=== PATIENT | male | born 1985 | race Caucasian/White ===

== ENCOUNTER 2020-01-12 10:12 | Outpatient (CLI) | payer OTHER, SELFPAY ==
--- NOTE | ~2020-01-12 | XR_ITS ---
XR sinus min 3V 01/12/2020 10:52 Indication: Sinusitis Procedure: 5 views cervical spine Comparison: No prior studies for comparison. Findings: Paranasal sinuses are pneumatized without significant opacification. No air-fluid levels. M astoids are pneumatized. No significant nasal septal deviation. Impression: 1: No significant abnormality of the paranasal sinuses. Reviewed, dictated and finalized at location A. 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
--- NOTE | ~2020-01-12 | XR_ITS ---
EXAMINATION: XR chest 2V EXAM DATE: 01/12/2020 10:52 INDICATION: Chronic sinus disease. Shortness of breath. TECHNIQUE: Frontal and lateral projections of the chest obtained and reviewed. There is no prior maninder dy for comparison. FINDINGS: The lungs are clear. There are no pleural effusions. The cardiomediastinal silhouette is within normal limits. There is no pneumothorax suspected. The bones and soft tissues are unremarkab le. IMPRESSION: No acute cardiopulmonary findings. Reviewed, dictated and finalized at location B. 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
[2020-01-12 10:35] LABS: Add Urine Microscopic? NO; Appearance Urine Clear (Clear); Basophils Absolute Auto 0.06 K/mm3 (0.00-0.10); Basophils Percent Auto 0.8 % (0.0-1.0); Bilirubin Urine Negative (Negative); Blood Urine Negative (Negative); Color Urine Yellow (Yellow); Eosinophils Absolute Auto 0.12 K/mm3 (0.02-0.50); Eosinophils Percent Auto 1.6 % (1.0-6.0); Glucose Urine UA Negative (Negative); Hemoglobin 15.9 g/dL (14.0-18.0); Immature Granulocyte Absolute 0.04 K/mm3 (0.00-0.00); Immature Granulocyte Percent A 0.5 % (0.0-0.0); Ketones Urine Negative (Negative); Leukocyte Esterase Ur Negative LEU/UL (Negative); Lymphocytes Absolute Auto 2.98 K/mm3 (1.10-4.50); Lymphocytes Percent Auto 40.3 % (18.0-42.0); Mean Corpuscular HGB Conc 34.6 g/dL (32.0-36.0); Mean Corpuscular Hemoglobin 31.8 pg (27.0-31.0); Mean Platelet Volume 9.2 fl (8.7-11.0); Monocytes Percent Auto 8.1 % (2.0-11.0); Neutrophils Absolute Auto 3.6 K/mm3 (1.7-7.2); Neutrophils Percent Auto 48.7 % (50.0-70.0); Nitrate Urine Negative (Negative); Platelet Count Result 224 K/mm3 (150-420); Protein Urine Negative (Negative); Red Cell Distribution Width 12.2 % (11.6-14.4); Specific Grav Ur 1.025 (1.010-1.020); Urobilinogen Urine 0.2 mg/dL (0.2-1.0); White Blood Count 7.4 K/mm3 (4.8-10.8); pH Urine 5.5 (5.0-8.0)
[2020-01-12 11:05] LABS: BNP < 5.0 pg/mL (0-100)
[2020-01-12 11:45] LABS: Alanine Aminotransferase 99 U/L (16-63); Albumin Level 4.6 g/dL (3.4-5.0); Alkaline Phosphatase 42 U/L (46-116); Anion Gap 10 mmol/L (8-16); Aspartate Amino Transferase 42 U/L (15-37); Bilirubin,Total 0.9 mg/dL (0.00-1.00); Blood Urea Nitrogen 20 mg/dL (7-18); Calcium 9.4 mg/dL (8.5-10.1); Carbon Dioxide 28 mmol/L (21-32); Chloride 104 mmol/L (98-108); Estimated Glomerular Filt Rate > 60; Glucose 93 mg/dL (70-99); Osmolality Calculated 296 mOsm/kg (285-295); Potassium 4.6 mmol/L (3.5-5.1); Sodium 142 mmol/L (136-145); Thyroid Stimulating Hormone 3.58 uIU/mL (0.36-3.74); Total Protein 7.8 g/dL (6.4-8.2)
[2020-01-14 10:00] LABS: GGT 68 U/L (15-85)
[2020-01-18 03:30] LABS: Hepatitis A Antibody IgM Nonreactive; Hepatitis B Core Antibody Nonreactive (Nonreactive); Hepatitis B Surface Antigen Nonreactive (Nonreactive); Hepatitis C Signal to Cutoff 0.01 ratio (<1.00); Hepatitis C Virus Antibody Nonreactive (Nonreactive)
== END 2020-01-12 10:13 | disposition home or self-care (01) ==
LOC: CHSLAB 10:14
PROVIDERS: PCP Internal Medicine; Visit Provider Internal Medicine
DX: R60.9 Edema, unspecified (principal); J32.9 Chronic sinusitis, unspecified; R94.5 Abnormal results of liver function studies
CPT/HCPCS: 36415; 70220; 71046; 80053; 80074; 81003; 82977; 83880; 84443; 85025

== ENCOUNTER → 2022-06-15 08:26 | Outpatient (CLI) | payer OTHER, SELFPAY ==
--- NOTE | ~2022-06-15 | XR_ITS ---
Lumbosacral Spine: AP and lateral views Clinical History: Pain Findings: The normal lordotic curve is maintained. No fracture or subluxation seen. There is mild to moderate degenerative disc narrowing at L4-L5 and L5-S1. The sacroiliac joints are normally outlined. Impression: [id number] degenerative disc narrowing at L4-L5 and L5-S1. Reviewed, dictated and finalized at [facility]. Impression: [id number] degenerative disc narrowing at L4-L5 and L5-S1.
== END ==
PROVIDERS: PCP Internal Medicine; Visit Provider Nurse Practitioner Family
DX: M54.50 Low back pain, unspecified (principal)
CPT/HCPCS: 72100

== ENCOUNTER 2022-06-18 09:56 | Emergency (ER) | payer OTHER, SELFPAY ==
--- NOTE | ~2022-06-18 | CT_ITS ---
EXAMINATION: CT abdomen pelvis w con DATE: 06/18/2022 11:49 INDICATION: Epigastric abdominal pain. Nausea. TECHNIQUE: Computed tomography (CT) of the abdomen and pelvis was performed with 100 mL Omnipaque 350 intravenous contrast. Automated exposure control and iterative reconstruction technique were employe d. The dose-length product was 1343.93 mGy-cm. COMPARISON: None. FINDINGS: The visualized portions of the lung bases are clear without pneumonia or pleural effusion. The heart size is normal. No pericardial effusion. There is a 4 mm cyst in the liver. The gallbladder , spleen, pancreas, adrenal glands, and kidneys are normal. There are no dilated loops of bowel. The appendix is normal. There are no pathologically enlarged lymph nodes. There is no free intraperitonea l fluid. There is mild thoracolumbar spondylosis. IMPRESSION: 1. No etiology for the patient's symptoms. Reviewed, dictated and finalized at location A.
--- NOTE | 2022-06-18 09:58 | ED.ABDPAIN ---
HPI - Abdominal Pain General Chief Complaint: Abdominal Pain Stated Complaint: abdominal pain Time Seen by Provider: 06/18/22 09:58 Source: patient and RN notes reviewed Mode of arrival: ambulatory Limitations: no limitations History of Present Illness HPI narrative: patient states that he has been having some problems with back pain. He was started on some steroids yesterday after he was given an injection in the office. He has only been on the steroids for a day. Started having some epigastric pain at 5:00 a.m. this morning. He thought it was just indigestion then it seemed to get worse. Comes in waves. Sometimes he feels dizzy. He denies any shortness of breath, nausea vomiting diarrhea, fever chills. MD elicited complaint: abdominal pain Pertinent past history: none Onset (ago): hour(s) (5) Pain Consistency: intermittent Location: epigastric Severity: moderate Quality: aching and burning Radiation: LUQ Migration to: no migration Exacerbating factors: nothing Relieving factors: nothing Associated symptoms: nausea Related Data Home Medications Medication Instructions Recorded Confirmed methylprednisolone 4 mg tablets in See Rx Instructions .Route .COMPLEX 06/18/22 06/18/22 a dose pack (Medrol (Tramaine)) Allergies Allergy/AdvReac Type Severity Reaction Status Date / Time No Known Allergies Allergy Verified 12/28/18 19:14 Review of Systems Review of Systems: All systems reviewed & are unremarkable except as noted in HPI and below Constitutional: Constitutional: Denies chills and Denies fever(s) Gastrointestinal: Gastrointestinal: Denies constipation, Denies diarrhea and Denies vomiting PMFSH Past Medical History Medical History (Updated 06/18/22 @ 12:24 by Norman Prakash MD) Sciatica Surgical History Surgical History No history of previous surgery Social History Social History Gender identity (if verbalized by the patient): Male Exam Const: General: healthy appearing, no acute distress and alert Nutritional Appearance: well nourished Orientation/consciousness: patient oriented x3 Limitations: no limitations HENMT: Head: normal to inspection Ears: external ears normal Face/Nose/Sinus: Normal external nose present Face and sinus: normal facial exam Mouth: Yes moist mucous membranes Eyes: Conjunctivae: conjunctivae normal Pupils: Equal, round and reactive pupils present EOM: EOMs intact bilaterally Neck: Neck: normal visual inspection Resp: Effort & Inspection: normal respiratory effort Auscultation: clear to auscultation bilaterally Cardio: Rate: regular rate Rhythm: regular rhythm GI: GI Palp: Yes Soft to palpation, Yes Tenderness to palpation present (GI) ( moderate epigastric), No Guarding due to palpation present (GI) and No Rebound tenderness present Auscultation: normal bowel sounds Back/Spine/Pelvis: Back: no CVA tenderness Cervical Spine: cervical ROM normal Thoracic/Lumbar Spine: thoraco-lumbar ROM normal Skin: General skin exam: normal color Wounds: no wounds Neuro: General: patient oriented x3, moves all extremities, no focal motor deficits and CN's II-XI intact bilaterally Speech: normal speech Gait exam (Neuro): Normal gait present Extrem: General: normal to inspection and no clubbing, cyanosis or edema Psych: Mental Status: mental status grossly normal Affect: normal affect Attitude: cooperative Course Vital Signs Vital signs: Vital Signs Temperature 36.4 C L 06/18/22 10:03 Pulse Rate 70 06/18/22 10:03 Respiratory Rate 17 06/18/22 10:03 Blood Pressure 116/63 06/18/22 10:03 Pulse Oximetry 100 06/18/22 10:03 Oxygen Delivery Room Air 06/18/22 10:03 Temperature 37.2 C 06/18/22 12:42 Pulse Rate 75 06/18/22 12:42 Respiratory Rate 18 06/18/22 12:42 Blood Pressure 132/57 L 06/18/22 12:42 Pulse Oximetry
[2022-06-18 10:03] VITALS: BP 116/63; PULSE 70; RESP 17; TEMP 36.4; O2SAT 100
--- NOTE | 2022-06-18 10:31 | PC.NURSE ---
RN attempted IV start x 2 without success. During IV start, pt reported feeling lightheaded. cool cloth provided. WILLIE Strickland to attempt. family at bedside.
--- NOTE | 2022-06-18 10:44 | PC.NURSE ---
WILLIE Strickland successful IV start after 2 attempts however unable to obtain blood for testing. 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
[2022-06-18] MEDS: PANTOPRAZOLE SODIUM IV 40 MG VIAL IV PUSH (10:55)
[2022-06-18 10:56] LABS: Basophils Absolute Auto 0.08 K/mm3 (0.00-0.10); Basophils Percent Auto 0.5 % (0.0-1.0); Eosinophils Absolute Auto 0.11 K/mm3 (0.02-0.50); Eosinophils Percent Auto 0.6 % (1.0-6.0); Hematocrit 48.8 % (40.0-54.0); Hemoglobin 16.6 g/dL (14.0-18.0); Immature Granulocyte Absolute 0.11 K/mm3 (0.00-0.00); Immature Granulocyte Percent A 0.6 % (0.0-0.0); Lymphocytes Absolute Auto 1.18 K/mm3 (1.10-4.50); Lymphocytes Percent Auto 6.8 % (18.0-42.0); Mean Corpuscular Hemoglobin 30.9 pg (27.0-31.0); Mean Corpuscular Volume 90.7 fL (78.0-102.0); Mean Platelet Volume 9.3 fl (8.7-11.0); Monocytes Absolute Auto 1.08 K/mm3 (0.10-0.90); Monocytes Percent Auto 6.3 % (2.0-11.0); Neutrophils Absolute Auto 14.7 K/mm3 (1.7-7.2); Neutrophils Percent Auto 85.2 % (50.0-70.0); Platelet Count Result 251 K/mm3 (150-420); Red Blood Count 5.38 M/mm3 (4.70-6.10); Red Cell Distribution Width 11.9 % (11.6-14.4); White Blood Count 17.3 K/mm3 (4.8-10.8)
[2022-06-18 11:28] LABS: Alanine Aminotransferase 24 U/L (16-63); Alkaline Phosphatase 58 U/L (46-116); Anion Gap 11 mmol/L (8-16); Aspartate Amino Transferase 10 U/L (15-37); Bilirubin,Total 1.4 mg/dL (0.00-1.00); Blood Urea Nitrogen 27 mg/dL (7-18); Calcium 8.7 mg/dL (8.5-10.1); Carbon Dioxide 26 mmol/L (21-32); Chloride 102 mmol/L (98-108); Estimated CRCL calculation 91 ml/min; Estimated Glomerular Filt Rate > 60; Glucose 127 mg/dL (70-99); Lipase 31 U/L (16-77); Magnesium 1.8 mg/dL (1.8-2.4); Osmolality Calculated 295 mOsm/kg (285-295); Potassium 4.2 mmol/L (3.5-5.1); Sodium 139 mmol/L (136-145); Total Protein 7.2 g/dL (6.4-8.2)
--- NOTE | 2022-06-18 11:33 | PC.NURSE ---
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
[2022-06-18 11:41] LABS: Lactic Acid Reflex 3.4 mmol/L (0.4-2.0)
[2022-06-18 11:55] VITALS: BP 98/45; PULSE 66; RESP 17; TEMP 36.4; O2SAT 99
[2022-06-18 12:32] VITALS: BP 132/57; PULSE 75; RESP 18; TEMP 37.2; O2SAT 100
[2022-06-18 12:42] VITALS: BP 132/57; PULSE 75; RESP 18; TEMP 37.2; O2SAT 100
[2022-06-18 13:27] LABS: Reflex Lactic Acid Yes or No No Lactic Reflex
== END 2022-06-18 12:42 | disposition home or self-care (01) ==
PROVIDERS: Emergency Provider Emergency Medicine; PCP Internal Medicine
DX: R10.13 Epigastric pain (principal)
CPT/HCPCS: 36415; 74177; 80053; 83605; 83690; 83735; 85025; 96374; 99284; C9113; Q9967

== ENCOUNTER 2024-07-30 17:28 | Emergency (ER) | payer OTHER, SELFPAY ==
--- NOTE | ~2024-07-30 | XR_ITS ---
XR knee LT 3V Ordering provider: Magno Locke MD History: . slipped and twisted Lt. knee, pain/ limited ROM . Comparison: None. FINDINGS: BONES: No acute fracture or dislocation. JOINT SPACES: Normal. SOFT TISSUES: Soft tissue swelling is seen in the area of the patellar tendon. Tendinosis versus a te ar cannot be excluded. Further evaluation advised. IMPRESSION: No acute osseous abnormality left knee. Soft tissue swelling in the area of the patellar tendon. Further evaluation advised. Reviewed, dictated and finalized at location A. IMPRESSION: No acute osseous abnormality left knee. Soft tissue swelling in the area of the patellar tendon. Further evaluation adv ised.
[2024-07-30 17:28] VITALS: BP 167/87; PULSE 72; RESP 16; TEMP 36.9; O2SAT 96
--- NOTE | 2024-07-30 17:36 | ED_ITS ---
HPI - Extremity Injury (Lower) General Chief Complaint: Extremity Injury, Lower Stated Complaint: left knee pain Time Seen by Provider: 07/30/24 17:35 Source: patient Mode of arrival: wheelchair Limitations: no limitations History of Present Illness HPI Narrative: 39-year-old male slipped while walking and twisted his left knee which caused --severe pain just prior to coming to the ED. -- abrasion the right forearm other injuries noted. No head injury. No neck back pain. complaint: knee injury Onset (ago): hour(s) ( 1 hour ago) Injury: Left: knee Type of Injury: hyperextension Place: home Severity: severe Exacerbating factors: movement Context: walking Other symptoms: none Treatments prior to arrival: cold therapy Related Data Home Medications ?Medication ?Instructions ?Recorded ?Confirmed ?Last Taken ?Type methylprednisolone 4 mg tablets in See Rx Instructions .Route .COMPLEX 06/18/22 06/18/22 Unknown History a dose pack (Medrol (Tramaine)) Allergies Allergy/AdvReac Type Severity Reaction Status Date / Time No Known Allergies Allergy Verified 07/30/24 17:33 Review of Systems Review of Systems: All systems reviewed & are unremarkable except as noted in HPI and below PMFSH Past Medical History Medical History Sciatica Surgical History Surgical History No history of previous surgery Social History Social History Gender identity (if verbalized by the patient): Male Exam Narrative: blood pressure 167/87. Const: General: ill appearing Nutritional Appearance: well nourished Orientation/consciousness: patient oriented x3 Limitations: no limitations HENMT: Head: normal to inspection Ears: external ears normal Face/Nose/Sinus: Normal external nose present Face and sinus: normal facial exam Mouth: Yes Normal oral and palatal mucosa present Throat: posterior oropharynx normal Eyes: Conjunctivae: conjunctivae normal Pupils: Equal, round and reactive p upils present EOM: EOMs intact bilaterally Direct Ophthalmoscopy: no photophobia Neck: Neck: normal visual inspection, no lymphadenopathy and no meningeal signs Chest: Chest palpation & inspection: normal inspection of the chest Resp: Effort & Inspection: normal respiratory effort Auscultation: clear to auscultation bilaterally Cardio: Rate: regular rate Rhythm: regular rhythm GI: GI Palp: Yes Soft to palpation Auscultation: normal bowel sounds Other: No tenderness/rigidity / rebound. : General: Yes no CVA tenderness Back/Spine/Pelvis: Back: no CVA tenderness Skin: General skin exam: normal color Rashes: no rashes Wounds: no wounds Neuro: General: patient oriented x3, moves all extremities, no meningeal signs, no focal motor deficits and CN's II-XI intact bilaterally Cranial nerves: Yes Nystagmus not present Speech: normal speech Gait exam (Neuro): Normal gait present Extrem: General: normal to inspection and no clubbing, cyanosis or edema Other: Left knee-- tenderness over left medial joint. No joint swelling. Decreased range of motion. No sprain of medial or lateral collateral ligament. Psych: Mental Status: mental status grossly normal Affect: normal affect Attitude: cooperative Course Course Emergency Course: Left knee sprain-- x-ray did show any fracture/dislocation abrasion on the back of right forearm Vital Signs Vital signs: Vital Signs Temperature 36.9 C 07/30/24 17:28 Pulse Rate 72 07/30/24 17:28 Respiratory Rate 16 07/30/24 17:28 Blood Pressure 167/87 H 07/30/24 17:28 Pulse Oximetry 96 07/30/24 17:28 Oxygen Delivery Room Air 07/30/24 17:28 Temperature 36.9 C 07/30/24 17:28 Pulse Rate 72 07/30/24 17:28 Respiratory Rate 16 07/30/24 17:28 Blood Pressure 167/87 H 07/30/24 17:28 Pulse Oximetry 96 07/30/24 17:28 Oxygen Delivery Room Air 07/30/24 17:28 MDM - Extremity Injury (Lower) MDM Narrative Medical decision making narrative: left knee sprain forearm abrasion Differential Diagnosis Differential diagnosis: Likely acute internal derangement of knee Lab Data Attestation: I reviewed the patient's lab results. Discharge Plan Discharge Clinical Impression: Left knee sprain, Abrasion of forearm Patient Disposition: Home Condition: Stable Instructions: Antibiotic Form, Knee Sprain (ED) Additional Instructions: follow-up with primary care physician / ortho specialist Patient Language: Danish Prescriptions: New hydrocodone-acetaminophen 5-325 mg tablet 1 tablet PO Q8H PRN (Reason: pain) Qty: 10 0RF diclofenac sodium 75 mg tablet,delayed release (DR/EC) 75 mg PO BID PRN (Reason: pain) Qty: 20 0RF (DME) crutches See Rx Instructions .Route .MEDSUPPLY Qty: 1 0RF Rx Instructions: As directed No Action methylprednisolone [Medrol (Tramaine)] 4 mg tablets,dose pack See Rx Instructions .ROUTE .COMPLEX Rx Instructions: medrol dose tramaine lansoprazole [Prevacid] 30 mg capsule,delayed release(DR/EC) 30 mg PO DAILY Qty: 14 0RF metronidazole 500 mg tablet 500 mg PO Q8H 10 Days Qty: 30 0RF Follow-up/Referrals: Rodriguez Foley MD [Primary Care Provider] - Time of Disposition: 18:27
[2024-07-30] MEDS: TETANUS,DIPHTHERIA,AC PERTUSSIS ADULT 0.5 ML (ADACEL) IM (17:46)
[2024-07-30] MEDS: ONDANSETRON HCL ODT 4 MG TABLET PO (17:46)
[2024-07-30] MEDS: HYDROmorphone HCL INJ (*CRX) 2 MG/ML VIAL 0.5 MG IM (17:50)
[2024-07-30 18:31] VITALS: BP 145/71; PULSE 70; RESP 14; O2SAT 95
[2024-07-30 18:45] VITALS: BP 145/71; PULSE 70; RESP 14; TEMP 36.9; O2SAT 95
== END 2024-07-30 18:45 | disposition home or self-care (01) ==
PROVIDERS: Emergency Provider Internal Medicine Critical Care Medicine; PCP Internal Medicine
DX: S83.92XA Sprain of unspecified site of left knee, initial encounter (principal); S50.811A Abrasion of right forearm, initial encounter; W01.0XXA Fall on same level from slipping, tripping and stumbling without subsequent striking against object, initial encounter; Z23 Encounter for immunization
CPT/HCPCS: 73562; 90471; 90715; 96372; 99283; A9270; J1171; L1830

== ENCOUNTER 2024-10-07 09:56 | Outpatient (RCR) | payer OTHER, SELFPAY ==
--- NOTE | 2024-10-07 11:10 | OPREHPOC ---
Outpatient Therapy Plan of Care This is a Multidisciplinary Plan of Care that may contain components documented by all disciplines (PT, OT, and ST.) PT Problem 1 PT Problem #1 Knowledge Deficit PT Goal 1 Goal / Goal Update The patient will be independent in a home exercise program. Target Visit 2 PT Problem 2 PT Problem #2 Pain PT Goal 1 Goal / Goal Update The patient will report 0/10 left knee pain with return to full duty work. Target Visit 18 PT Problem 3 PT Problem #3 Impaired Functional Mobility PT Goal 1 Goal / Goal Update The patient will demonstrate 25% or less self perceived disability per the LEFS questionnaire. The patient will be able ascend/descend a flight of stairs reciprocally without left knee pain. The patient will demonstrate the ability to ambulate 1,200 feet during the 6 minute walk test to improve community ambulation. Target Visit 18 PT Problem 4 PT Problem #4 Impaired Range of Motion PT Goal 1 Goal / Goal Update The patient will demonstrate 0-120 degrees left knee AROM to normalize gait. Target Visit 12 PT Problem 5 PT Problem #5 Impaired Gait PT Goal 1 Goal / Goal Update The patient will demonstrate equilateral knee ROM and step length with gait. Target Visit 12
--- NOTE | 2024-10-07 11:10 | PTOPEVAL1 ---
Assessment and note entered by Simran Graf, PT Evaluation Information Assessment Status Evaluation Diagnosis s/p L knee open patellar tendon repair ICD-10 Condition Codes (PT) Encounter for other orthopedic aftercare Z47.89 Other ICD-10 Condition Codes ( S86.812A PT) Onset 08/12/24 Subjective Information John Kwan reports he tore his left patella tendon when he slipped while racing his children. When he slipped, he tried to pull his leg back and felt a pop in the front of the knee. The injury occurred on 07/30/24 and he had surgery to repair the tendon on 08/12/24. He was using crutches and wearing a knee brace for the first 4-5 weeks. He continued wearing the brace until about one week ago. He reports the brace kept his knee extended. He saw the doctor on 09/24/24 and was referred to PT . He reports his knee feels tight when he tries to bend it. He is still taking stairs one at a time. He has been walking with a little bit of a waddle and notes he can walk up to 60 minutes. Reported Pain Level Pain Score 0: Self Report Assessment PT Clinical Summary John Kwan presents 8 weeks s/p L knee open patellar tendon repair that was performed on . He is reporting difficulty with stairs, walking long distances, and bending his knee. 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 He objectively demonstrates decreased left knee flexion and extension AROM, decreased left knee strength, impaired gait, and impaired balance. He will benefit from skilled PT to address these limitations. Plan of Care Interventions Electrical Stimulation,Gait Training,Hot Pack/Cold Pack,Intermittent Compression Pump,Manual Therapy ,Neuro Re-education,Patient/Caregiver Education, Therapeutic Activities,Therapeutic Exercise PT Services Indicated Yes Treatment Frequency and 3 times a week for 6 visits then 2 times a week Duration for 12 visits for a total of 18 visits These treatments will address the objective and functional deficits as defined above. The patient will be advanced safely and appropriately in order for the patient to progress towards his/her prior level of function. Additional exercises will be introduced and as well as a comprehensive home exercise program upon discharge, if needed, ?to ensure carryover of functional gains achieved in the clinic. This treatment plan has been reviewed and agreement upon by the patient.
--- NOTE | 2024-10-13 08:13 | PCPTNOTE ---
Patient called & cancelled scheduled appointment this date due to not feeling well. -Simran Graf, PT
--- NOTE | 2024-10-25 09:04 | OPREHPOC ---
Outpatient Therapy Plan of Care This is a Multidisciplinary Plan of Care that may contain components documented by all disciplines (PT, OT, and ST.) PT Problem 1 PT Problem #1 Knowledge Deficit PT Goal 1 Goal / Goal Update The patient will be independent in a home exercise program. Target Visit 2 Progress Met PT Problem 2 PT Problem #2 Pain PT Goal 1 Goal / Goal Update The patient will report 0/10 left knee pain with return to full duty work. Target Visit 18 Progress Met PT Problem 3 PT Problem #3 Impaired Functional Mobility PT Goal 1 Goal / Goal Update The patient will demonstrate 25% or less self perceived disability per the LEFS questionnaire. - not met The patient will be able ascend/descend a flight of stairs reciprocally without left knee pain. - not met The patient will demonstrate the ability to ambulate 1,200 feet during the 6 minute walk test to improve community ambulation. -met Target Visit 18 Progress Partially Met PT Problem 4 PT Problem #4 Impaired Range of Motion PT Goal 1 Goal / Goal Update The patient will demonstrate 0-120 degrees left knee AROM to normalize gait. Target Visit 12 Progress Met PT Problem 5 PT Problem #5 Impaired Gait PT Goal 1 Goal / Goal Update The patient will demonstrate equilateral knee ROM and step length with gait. Target Visit 12 Progress Not Met
--- NOTE | 2024-10-25 09:05 | PTOPPROG ---
Assessment and note entered by Sandi Evangelista, PT Evaluation Information Assessment Status Progress Diagnosis s/p L knee open patellar tendon repair ICD-10 Condition Codes (PT) Encounter for other orthopedic aftercare Z47.89 Other ICD-10 Condition Codes ( S86.812A PT) Onset 08/12/24 Subjective Information John reports his knee is feeling pretty good and he currently only reports stiffness in the knee, however he still has L knee pain when going down the stairs. He follows up with his doctor tomorrow and reports he may get cleared to go back to work . Assessment PT Clinical Summary Mr. Kwan has attended 7 skilled PT visits following L patellar tendon repair. He presents today with improved knee AROM and reduced L knee pain, and he has also met his goal for 6MWT distance to indicate sufficient community ambulation. However he still demonstrates slight gait deficits such as antalgic pattern and L knee flexion throughout the gait cycle, and he also demonstrates poor eccentric control of the L knee that leads to pain and difficulty ascending/ descending stairs. He follows up with his doctor tomorrow, and would benefit from additional skilled PT intervention to improve strength and control of the L knee to be able to perform all functional tasks without difficulty. Plan of Care Interventions Electrical Stimulation,Gait Training,Hot Pack/Cold Pack,Intermittent Compression Pump,Manual Therapy ,Neuro Re-education,Patient/Caregiver Education, Therapeutic Activities,Therapeutic Exercise PT Services Indicated Yes Treatment Frequency and Per original POC, transition to 2x/week for 10 Duration visits These treatments will address the objective and functional deficits as defined above. The patient will be advanced safely and appropriately in order for the patient to progress towards his/her prior level of function. Additional exercises will be introduced and as well as a comprehensive home exercise program upon discharge, if needed, ?to ensure carryover of functional gains achieved in the clinic. This treatment plan has been reviewed and agreement upon by the patient.
--- NOTE | 2024-10-26 09:37 | PTOPPROG ---
Assessment and note entered by Sandi Evangelista, PT Evaluation Information Assessment Status Progress Diagnosis s/p L knee open patellar tendon repair ICD-10 Condition Codes (PT) Encounter for other orthopedic aftercare Z47.89 Other ICD-10 Condition Codes ( S86.812A PT) Onset 08/12/24 Subjective Information John reports his knee is feeling pretty good and he currently only reports stiffness in the knee, however he still has L knee pain when going down the stairs. He follows up with his doctor tomorrow and reports he may get cleared to go back to work . Assessment PT Clinical Summary Mr. Kwan has attended 7 skilled PT visits following L patellar tendon repair. He presents today with improved knee AROM and reduced L knee pain, and he has also met his goal for 6MWT distance to indicate sufficient community ambulation. However he still demonstrates slight gait deficits such as antalgic pattern and L knee flexion throughout the gait cycle, and he also demonstrates poor eccentric control of the L knee that leads to pain and difficulty ascending/ descending stairs. He follows up with his doctor tomorrow, and would benefit from additional skilled PT intervention to improve strength and control of the L knee to be able to perform all functional tasks without difficulty. Plan of Care Interventions Electrical Stimulation,Gait Training,Hot Pack/Cold Pack,Intermittent Compression Pump,Manual Therapy ,Neuro Re-education,Patient/Caregiver Education, Therapeutic Activities,Therapeutic Exercise PT Services Indicated Yes Treatment Frequency and Pending follow up with MD, transition to 1x/week Duration for 4 visits These treatments will address the objective and functional deficits as defined above. The patient will be advanced safely and appropriately in order for the patient to progress towards his/her prior level of function. Additional exercises will be introduced and as well as a comprehensive home exercise program upon discharge, if needed, ?to ensure carryover of functional gains achieved in the clinic. This treatment plan has been reviewed and agreement upon by the patient.
== END 2025-01-05 23:59 | disposition home or self-care (01) ==
LOC: CHSPT 09:56
DX: S86.812A Strain of other muscle(s) and tendon(s) at lower leg level, left leg, initial encounter (principal)
CPT/HCPCS: 97016; 97110; 97112; 97140; 97161; 97530